=== PATIENT | male | born 1965 | race Two or more races ===

== ENCOUNTER 2022-11-17 03:52 | Emergency (ER) | payer OTHER ==
[~2022-11-17] VITALS: Ht 172.7 cm; Wt 75.3 kg
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
--- NOTE | 2022-11-17 04:22 | NUR ---
DR. MIKE LOMBARDO AT PT'S BEDSIDE FOR EVAL
[2022-11-17] MEDS ORDERED: CYCLOBENZAPRINE 10 MG TABLET PO ONE (04:30)
[2022-11-17] MEDS ORDERED: LIDOCAINE 5% (PATCH) 1 EA PATCH TP SCH (04:30)
[2022-11-17] MEDS ORDERED: ACETAMINOPHEN ES 500 MG TABLET PO ONE (04:30)
[2022-11-17] MEDS ORDERED: ACETAMINOPHEN ES 500 MG TABLET ONE (04:31)
[2022-11-17] MEDS ORDERED: CYCLOBENZAPRINE 10 MG TABLET ONE (04:31)
--- NOTE | 2022-11-17 04:49 | NUR ---
PT TAKEN TO CT VIA [facility]
--- NOTE | 2022-11-17 05:07 | NUR ---
[employer] AT PT'S BEDSIDE
--- NOTE | 2022-11-17 05:11 | NUR ---
PT RETURNED TO ER BED [address]
--- NOTE | 2022-11-17 05:19 | NUR ---
VANESSA HICKS AT BED SIDE
--- NOTE | 2022-11-17 06:57 | NUR ---
CALLED PHARMACY FOR LIDOCAINE PATCH
[2022-11-17] MEDS ORDERED: MORPHINE SULFATE INJ 2 MG/ML DISP.SYRIN IV ONE ×2 (07:30→11:30)
--- NOTE | 2022-11-17 07:32 | NUR ---
PAGED DR CHANDLER, NEURO SURGON
[2022-11-17] MEDS ORDERED: MORPHINE SULFATE INJ 4 MG/ML DISP.SYRIN ONE ×2 (07:42→11:49)
--- NOTE | 2022-11-17 08:07 | NUR ---
DR. DOUGLASS ON PHONE WITH DR. CHANDLER
--- NOTE | 2022-11-17 08:18 | NUR ---
COVID SWAB COLLECTED AND SENT TO LAB
--- NOTE | 2022-11-17 08:27 | NUR ---
CALLED [facility], AWAITING PHYSICIAN CALLBACK PER [place].
--- NOTE | 2022-11-17 08:41 | NUR ---
DR DOUGLASS ON THE PHONE W/ STEFANI LOMBARDO
--- NOTE | 2022-11-17 09:13 | NUR ---
PT'S PERSONAL BELONGINGS CURRENTLY W/ PT.
--- NOTE | 2022-11-17 09:33 | NUR ---
PT ACCEPTED TO [facility]. TRANSPORT WILL BE ARRANGED BY [facility].
--- NOTE | 2022-11-17 10:22 | NUR ---
acceptance info: going to room 5315.a accepting md: dr [facility] eta: [phone]
--- NOTE | 2022-11-17 10:39 | NUR ---
NEW TRANSPORT ETA: [phone]
--- NOTE | 2022-11-17 11:07 | NUR ---
# FOR REPORT [phone]; PT REPORT GIVEN TO S[facility] [employer] SERV[employer] ADVISOR AT [facility]
--- NOTE | 2022-11-17 11:45 | NUR ---
EMT AT BEDSIDE TO PICKUP PT
--- NOTE | 2022-11-17 11:50 | NUR ---
ENDORSEMENT GIVEN TO EMT AT BEDSIDE
--- NOTE | 2022-11-17 11:51 | NUR ---
PT COMPLAINED OF BACK PAIN RATED 9/10; DR DOUGLASS MADE AWARE W/ ORDER FOR MORPHINE 4MG IV. ORDER READ BACK AND VERIFIED.
[2022-11-17 12:00] VITALS: BP 138/76
== END 2022-11-17 12:15 | disposition short-term general hospital (02) ==
LOC: ER 03:59
DX: S32.041A Stable burst fracture of fourth lumbar vertebra, initial encounter for closed fracture (principal); V49.49XA Driver injured in collision with other motor vehicles in traffic accident, initial encounter; Y92.411 Interstate highway as the place of occurrence of the external cause; S06.9X9A Unspecified intracranial injury with loss of consciousness of unspecified duration, initial encounter; R40.2252 Coma scale, best verbal response, oriented, at arrival to emergency department; R40.2362 Coma scale, best motor response, obeys commands, at arrival to emergency department; R40.2142 Coma scale, eyes open, spontaneous, at arrival to emergency department; M54.2 Cervicalgia; I10 Essential (primary) hypertension; E78.5 Hyperlipidemia, unspecified; Z20.822 Contact with and (suspected) exposure to COVID-19
CPT/HCPCS: 99285; 72125; 96374; 71045; 87426; 96376; 70450; 72131; J2270 ×2; C9803